=== PATIENT | male | born 1955 | race Caucasian/White ===

== ENCOUNTER 2017-12-08 14:37 | Outpatient (CLI) | payer BC ==
--- NOTE | 2017-12-08 15:08 | XRAY Report ---
Procedure Date: 12/08/2017 Accession Number: [id number] / [id number] Procedure: XR - Chest 2 View X-Ray CPT Code: 82929 FULL RESULT: EXAM: Chest 2 View X-Ray DATE: 12/08/2017 2:51 PM CLINICAL HISTORY: PNEUMONIA COMPARISON: None. TECHNIQUE: 2 views. FINDINGS: Lungs/Pleura: No focal opacities evident. No pneumothorax or pleural effusion. Normal volumes. Mediastinum: Heart and mediastinal contours are unremarkable. Other: None. IMPRESSION: No acute cardiopulmonary abnormality. RADIA
== END 2017-12-08 14:38 | disposition home or self-care (01) ==
LOC: DI 14:37
PROVIDERS: ATTEND Specialist
DX: J18.9 Pneumonia, unspecified organism (principal)
CPT/HCPCS: 71046

== ENCOUNTER 2022-11-29 11:57 | Emergency (ER) | payer MEDICARE, BC ==
[2022-11-29] MEDS ORDERED: MORPHINE 2 MG/ML CARPUJECT IVP STA (12:33)
--- NOTE | 2022-11-29 12:35 | ED Physician Documentation ---
PD HPI MALE - Stated complaint Stated Complaint: MALE - Chief complaint Chief Complaint: Abd Pain - History obtained from History obtained from: Patient - Additional information Additional information: 67-year-old gentleman presents unable to urinate for the last 24 hours. He was on Flomax but stopped as it was not helping. He is visiting here from [place] and says his doctor was planning to send him to a urologist on return home next month. PD PAST MEDICAL HISTORY - Allergies Allergies/Adverse Reactions: Allergies Allergy/AdvReac Type Severity Reaction Status Date / Time No Known Drug Allergies Allergy Verified 11/29/22 12:11 PD ED PE NORMAL - Vitals Vital signs reviewed: Yes - General General: Alert and oriented X 3, Other (Mildly uncomfortable) - Abdomen Abdomen: Other (Large palpable bladder in the suprapubic area) - Extremities Extremities: No edema - Neuro Neuro: Alert and oriented X 3, Normal speech Results - Vitals Vitals: Vital Signs - 24 hr 11/29/22 12:02 Temperature 35.4 C L Heart Rate 112 H Respiratory 18 Rate Blood Pressure 149/85 H O2 Saturation 97 Oxygen O2 Source Room air - Labs Labs: Laboratory Tests 11/29/22 11/29/22 12:40 12:40 WBC 12.8 H RBC 3.85 L Hgb 12.2 L Hct 36.4 L MCV 94.5 H MCH 31.7 H MCHC 33.5 RDW 12.6 Plt Count 284 MPV 9.5 Neut # (Auto) 10.3 H Lymph # (Auto) 1.3 L [place] # (Auto) 1.1 H Eos # (Auto) 0.0 Baso # (Auto) 0.1 Absolute Nucleated RBC 0.00 Nucleated RBC % 0.0 Sodium 135 Potassium 3.9 Chloride 104 Carbon Dioxide 17 L Anion Gap 14.0 H BUN 26 H Creatinine 1.2 Estimated GFR (MDRD) 60 L Glucose 122 H Calcium 9.2 Procedures - General procedure General procedure: I initially tried a Rios placement with a 16 [place] regular Rios. He had a tight meatus that actually did not allow passage of this even into the meatus. Subsequently I tried a 12 [place] Rios and was unable to pass the prostate and got quite a bit of resistance at the prostate. At this point I tried a 16 [place] coud which also could not past the prostate. PD Medical Decision Making - ED course ED course: 67-year-old gentleman with acute urinary retention. Initial attempts at Rios were unsuccessful. He has greater than 2 L in his bladder per bladder scan. Subsequently I spoke with Dr. Luna, Urology at [place] as [facility] does not have anyone on-call today. She recommended retrial with a larger coud and this was trialed several times with some trauma but no real urinary output. There was some trauma with these attempts and some blood out. I spoke with the urologist again and she was agreeable to an ED to ED transport. Excepted to schedule as an ED to ED transfer by Dr. Bernardino Ott at approximately 2:40 PM and cobras are completed. Departure - Departure Disposition: 02 Transfer Acute Care Hosp Clinical Impression: Urinary retention
[2022-11-29] MEDS ORDERED: LIDOCAINE 2% URO-JET 5 ML SYRINGE UR STA ×2 (12:44→13:38)
[2022-11-29 12:47] LABS: BASOPHILS # (AUTO) 0.1 10^3/uL (0.0-0.1); BASOPHILS % (AUTO) 0.5 %; HCT - HEMATOCRIT 36.4 % (42.0-52.0); HGB - HEMOGLOBIN 12.2 g/dL (14.0-18.0); LYMPHOCYTES # (AUTO) 1.3 10^3/uL (1.5-3.5); LYMPHOCYTES % (AUTO) 10.4 %; MEAN CORPUSCULAR HEMOGLOBIN 31.7 pg (27.0-31.0); MEAN CORPUSCULAR HGB CONC 33.5 g/dL (32.0-36.0); MEAN CORPUSCULAR VOLUME 94.5 fL (80.0-94.0); MEAN PLATELET VOLUME 9.5 fL (7.4-11.4); MONOCYTES # (AUTO) 1.1 10^3/uL (0.0-1.0); MONOCYTES % (AUTO) 8.6 %; NEUTROPHILS # (AUTO) 10.3 10^3/uL (1.5-6.6); PLT - PLATELET COUNT 284 10^3/uL (130-450); RED BLOOD COUNT 3.85 10^6/uL (4.70-6.10); RED CELL DISTRIBUTION WIDTH 12.6 % (12.0-15.0); WHITE BLOOD COUNT 12.8 x10^3/uL (4.8-10.8)
[2022-11-29 12:53] LABS: CALCIUM 9.2 mg/dL (8.5-10.3); CREATININE 1.2 mg/dL (0.6-1.2); POTASSIUM 3.9 mmol/L (3.5-5.0)
[2022-11-29 15:59] VITALS: BP 171/83
== END 2022-11-29 16:03 | disposition short-term general hospital (02) ==
LOC: ED 11:57
DX: R33.9 Retention of urine, unspecified (principal)
CPT/HCPCS: 36415; 51702; 51798; 80048; 85025; 99284